=== PATIENT | male | born 1990 | race African-American/Black ===

== ENCOUNTER 2020-11-25 08:07 | Emergency (ER) | payer MEDICAID, OTHER ==
[~2020-11-25] VITALS: Ht 182.9 cm; Wt 88.0 kg
[2020-11-25] MEDS ORDERED: LIDOCAINE HCL/PF 1% 10 MG/ML 5ML VIAL IJ ONE (09:00)
[2020-11-25] MEDS ORDERED: IBUP-2029 PO (10:09)
[2020-11-25 10:26] VITALS: BP 133/84
== END 2020-11-25 10:27 | disposition home or self-care (01) ==
LOC: ER 08:13
DX: S67.191A Crushing injury of left index finger, initial encounter (principal); W26.8XXA Contact with other sharp object(s), not elsewhere classified, initial encounter; Y93.89 Activity, other specified; Y92.89 Other specified places as the place of occurrence of the external cause; Y99.8 Other external cause status
CPT/HCPCS: 73130; 99283; J3490

== ENCOUNTER 2024-03-08 19:32 | Emergency (ER) | payer MEDICAID ==
[~2024-03-08] VITALS: Ht 170.2 cm; Wt 79.0 kg
[~2024-03-08 19:32] MED LIST: BUTA1CAP45 MT; DOXY100C5 MT; IBUP-2029 PO
[2024-03-08 19:41] VITALS: O2SAT 97
[2024-03-08] MEDS: DIPHENHYDRAMINE 50MG/ML VIAL IM STA (20:10)
[2024-03-08] MEDS: LORAZEPAM 2MG/ML INJ IM ONE (20:15)
[2024-03-08] MEDS: HALOPERIDOL LACTATE 5MG/ML VIAL IM ONE (20:15)
[2024-03-08 20:30] LABS: BASOPHILS % 0.5 % (0.0-2.0); EOSINOPHILS % 0.6 % (0.0-5.0); HEMATOCRIT. 41.9 % (42.0-52.0); HEMOGLOBIN. 14.1 g/dL (14.0-18.0); LYMPHOCYTES % 34.1 % (20.0-50.0); MEAN CORPUSCULAR HEMOGLOBIN 32.7 pg (28.0-32.0); MEAN CORPUSCULAR HGB CONC 33.6 g/dL (31.0-37.0); MEAN CORPUSCULAR VOLUME 97.4 fL (80.0-94.0); MEAN PLATELET VOLUME 8.4 fl (7.4-10.4); MONOCYTES % 3.8 % (2.0-8.0); PLATELET 354 x1000/uL (130-400); RED BLOOD CELL COUNT 4.31 mill/uL (4.7-6.1); RED CELL DISTRIBUTION WIDTH 15.3 % (11.6-14.6); WHITE BLOOD COUNT 6.9 x1000/uL (4.5-11.0)
[2024-03-08 20:35] LABS: CHLORIDE 105 mEq/L (98-107); POTASSIUM 3.6 mEq/L (3.5-5.1); SODIUM 144 mEq/L (136-145)
[2024-03-08 20:36] LABS: CARBON DIOXIDE 28 mEq/L (21-32)
[2024-03-08 20:37] LABS: CALCIUM 10.1 mg/dL (8.7-10.4)
[2024-03-08 20:41] LABS: CREATININE 1.2 mg/dL (0.6-1.3)
[2024-03-08 20:42] LABS: ETHANOL BLOOD 169 mg/dL (<10); GLUCOSE 100 mg/dL (70-105); UREA NITROGEN BLOOD 5 mg/dL (9-23)
[2024-03-08 20:43] LABS: ACETAMINOPHEN < 2 ug/mL (10-30)
[2024-03-08 21:24] LABS: *AMPHETAMINES SCREEN URINE PRESUMPTIVE POSITIVE (NEGATIVE); *BARBITURATES SCREEN URINE NEGATIVE (NEGATIVE); *BENZODIAZEPINES SCREEN URINE NEGATIVE (NEGATIVE); *COCAINE SCREEN URINE NEGATIVE (NEGATIVE); CANNABINOID URINE SCREEN NEGATIVE (NEGATIVE); ECSTASY MDMA SCREEN URINE NEGATIVE (NEGATIVE); METHADONE URINE SCREEN NEGATIVE (NEGATIVE); OPIATES URINE SCREEN NEGATIVE (NEGATIVE); PHENCYCLIDINE URINE SCREEN NEGATIVE (NEGATIVE)
[2024-03-09] MEDS: OLANZAPINE 5MG TABLET ODT PO SCH (14:30)
[2024-03-09 17:36] VITALS: BP 127/66; PULSE 96; RESP 18; TEMP 98.2
== END 2024-03-09 20:27 ==
LOC: ER 19:32
DX: T65.91XA Toxic effect of unspecified substance, accidental (unintentional), initial encounter (principal); I49.9 Cardiac arrhythmia, unspecified; Z20.822 Contact with and (suspected) exposure to COVID-19; Y92.9 Unspecified place or not applicable
CPT/HCPCS: 80305; 80048; 80307; 80329; 80320; 85025; 36415; 93005; 96372; 99291; 87426; J1200; J1630; J2060; G0480